=== PATIENT | male | born 1995 | race American Indian/Alaskan Native ===

== ENCOUNTER 2018-11-18 10:48 | Emergency (ER) | payer OTHER ==
[2018-11-18 11:10] VITALS: BP 128/60
--- NOTE | 2018-11-18 11:13 | Emergency Department Report ---
Blank Doc - Documentation Documentation: This is a 22-year-old male that presents with right 3rd finger injury. Stated something slammed on his finger. Will order Xray Patient sent to [facility] for further evaluation and treatment.
[2018-11-18] MEDS ORDERED: TORADOL IM ONE (11:59)
--- NOTE | 2018-11-18 12:48 | XRay Report ---
Right third finger 2 views: History: Right third finger pain. Findings: No bony or articular abnormality. No periosteal reaction, lytic lesion or soft tissue calcification. Impression: Essentially negative right third finger.
--- NOTE | 2018-11-18 13:19 | Emergency Department Report ---
Upper Extremity - HPI Chief Complaint: Extremity Injury, Upper Stated Complaint: R FINGER INJURY Time Seen by Provider: 11/18/18 11:10 Upper Extremity: Right Middle Finger Occurred When: 1 Day Mechanism: Hit with Object Severity: moderate Symptoms: Yes Pain with Movement, Yes Limited Range of Movement, No Deformity, No Numbness, No Weakness, No Swelling, No Bruising/Ecchymosis, No Laceration or Abrasion Other History: This is a 22-year-old male complaining of right middle finger pain that started yesterday. Patient states that he was at work lifting an object with another person when the other individual ankle and accidentally hit his finger. ED Review of Systems ROS: Stated complaint: R FINGER INJURY Other details as noted in HPI Comment: All other systems reviewed and negative ED Past Medical Hx - Past Medical History Previous Medical History?: Yes Hx Headaches / Migraines: Yes - Surgical History Past Surgical History?: Yes Additional Surgical History: Right middle finger reatachment. - Social History Smoking Status: Current Every Day Smoker Substance Use Type: None - Medications Home Medications: Home Medications Medication Instructions Recorded Confirmed Last Taken Type Ibuprofen [Motrin] 800 mg PO Q8HR #30 tablet 11/18/18 Unknown Rx Upper Extremity Exam - Exam General: Vital signs noted. No distress. Alert and acting appropriately. Head and Torso: No HEENT Abnormality, No Neck Tenderness, No Chest/Lungs Abnormality, No Abdominal Tenderness, No Back Tenderness Shoulder Exam: Yes Normal Range of Motion in Shoulder, No Shoulder Tenderness, No Clavicle Tenderness, No Shoulder Deformity, No AC Joint Tenderness Arm Exam: No Arm/Humerus Tenderness, No Arm Deformity Elbow: No Elbow Tenderness, No Normal Range of Motion in Elbow, No Elbow Deformity Forearm: No Forearm Tenderness, No Forearm Deformity, No Pain with Pronation, No Pain with Supination Wrist: Yes Normal ROM in Wrist, No Wrist Tenderness, No Wrist Deformity, No Snuffbox Tenderness, No Pain with Axial Thumb Compression Hand: Yes Normal ROM in Digit(s), No Hand Tenderness, No Hand Deformity, No Digit Tenderness, No Digit(s) Deformity, No Tendon Dysfunction CMS Exam: No Broken Skin, No Normal Distal Pulses, No Normal Capillary Refill, No Normal Distal Sensation ED Course Vital Signs 11/18/18 11:08 Temperature 98.4 F Pulse Rate 82 Respiratory 20 Rate Blood Pressure 128/60 O2 Sat by Pulse 99 Oximetry ED Medical Decision Making - Radiology Data Radiology results: report reviewed, image reviewed Fluoro Time In Minutes: Right third finger 2 views: History: Right third finger pain. Findings: No bony or articular abnormality. No periosteal reaction, lytic lesion or soft tissue calcification. Impression: Essentially negative right third finger. Transcribed By: PTP Dictated By: ALEAH TAYLOR MD Electronically Authenticated By: ALEAH TAYLOR MD Signed Date/Time: 11/18/18 7917 - Medical Decision Making 22-year-old male presents with finger pain status post injury x-ray shows no dislocation or fractures. No deformity was seen upon evaluation as well. Discussed the patient to follow up with orthopedic doctor as referred. The signs and normal patient is in no acute distress. Critical care attestation.: If time is entered above; I have spent that time in minutes in the direct care of this critically ill patient, excluding procedure time. ED Disposition Clinical Impression: Finger pain, right Disposition: [id number] TO HOME OR SELFCARE Is pt being admited?: No Does the pt Need Aspirin: No Condition: Stable Instructions: Finger Sprain (ED), Arthralgia (ED), Heat Pack Application (ED) Additional Instructions: Make sure to follow up with the primary care physician as discussed. Take all your medications as you've been prescribed. If you have any worsening symptoms or develop new symptoms please return to ED immediately. Prescriptions: Ibuprofen [Motrin] 800 mg PO Q8HR #30 tablet Referrals: HARMAN GROSSSTOCKTON MD TONJA [Primary Care Provider] - 3-5 Days RENEE WALLACE MD [Staff Physician] - 3-5 Days Forms: Work/School Release Form(ED) Time of Disposition: 13:23
== END 2018-11-18 13:39 | disposition home or self-care (01) ==
LOC: ED 10:48
DX: M79.644 Pain in right finger(s) (principal); G43.909 Migraine, unspecified, not intractable, without status migrainosus; F17.200 Nicotine dependence, unspecified, uncomplicated
CPT/HCPCS: 73140; 96372; 99283; J1885